=== PATIENT | female | born 1970 | race Caucasian/White ===

== ENCOUNTER 2019-01-12 11:01 | Day surgery (SDC) | payer OTHER ==
[2019-01-12] MEDS ORDERED: MIDAZOLAM 2 MG/2 ML VIAL ONE ×2 (16:37)
[2019-01-12] MEDS ORDERED: fentaNYL 0.05 MG/ML VIAL ONE (16:37)
[2019-01-12] MEDS ORDERED: fentaNYL 0.05 MG/ML VIAL IVP ONE (16:55)
[2019-01-12] MEDS ORDERED: MIDAZOLAM 2 MG/2 ML VIAL IVP ONE (16:55)
== END 2019-01-12 17:20 | disposition home or self-care (01) ==
LOC: MDS 11:01 → MMU 11:01 → MDS 17:20
PROVIDERS: ATTEND Surgery
DX: R10.84 Generalized abdominal pain (principal); E11.9 Type 2 diabetes mellitus without complications; I10 Essential (primary) hypertension; E78.5 Hyperlipidemia, unspecified; Z90.710 Acquired absence of both cervix and uterus
CPT/HCPCS: 45378; 71045; 82948; 93005; J2250; J3010; J7030